=== PATIENT | male | born 2000 | race Caucasian/White ===

== ENCOUNTER 2021-05-23 21:11 | Emergency (ER) | payer BC ==
[~2021-05-23] VITALS: Ht 180.3 cm; Wt 75.7 kg
[2021-05-23 21:17] VITALS: BP 151/89
[2021-05-23] MEDS ORDERED: CEPH-322 PO (22:00)
== END 2021-05-23 22:32 | disposition home or self-care (01) ==
LOC: ER 21:11
DX: S00.551A Superficial foreign body of lip, initial encounter (principal); X58.XXXA Exposure to other specified factors, initial encounter; Y93.89 Activity, other specified; Y92.89 Other specified places as the place of occurrence of the external cause; Y99.8 Other external cause status